=== PATIENT | female | born 1945 | race Caucasian/White ===

== ENCOUNTER 2023-11-27 08:33 | Outpatient (CLI) | payer MEDICARE, BC, SELFPAY ==
--- NOTE | 2023-11-27 09:33 | W.ANESCHARGE ---
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
--- NOTE | 2023-11-27 09:48 | W.ANESCHARGE ---
Anesthesia Charges Start Date/Time Anesthesia Start Date: 11/27/23 Anesthesia Start Time: 09:12 Stop Date/Time Anesthesia Stop Date: 11/27/23 Anesthesia Stop Time: 09:31 Summary Extremes of Age - Over 70 or under 1: MDA
== END 2023-11-27 08:34 | disposition home or self-care (01) ==
LOC: OP CLINIC 08:44
PROVIDERS: PCP Internal Medicine; Visit Provider Internal Medicine Gastroenterology
DX: R10.13 Epigastric pain (principal); K74.60 Unspecified cirrhosis of liver; I85.10 Secondary esophageal varices without bleeding; K31.89 Other diseases of stomach and duodenum
CPT/HCPCS: 00731; 43239; 88305; 88342; 99100; J2704; J3010